=== PATIENT | female | born 1990 | race Caucasian/White ===

== ENCOUNTER 2023-10-23 10:10 | Emergency (ER) | payer MEDICAID | END 2023-10-23 12:10 | disposition home or self-care (01) | LOC: MW.ED 10:10 | DX: S89.92XA Unspecified injury of left lower leg, initial encounter (principal); Z88.8 Allergy status to other drugs, medicaments and biological substances; Z79.899 Other long term (current) drug therapy; Z75.8 Other problems related to medical facilities and other health care; X50.9XXA Other and unspecified overexertion or strenuous movements or postures, initial encounter | CPT/HCPCS: 73562-26-LT; 73562-LT; 99283 ==